=== PATIENT | male | born 1965 | race Caucasian/White ===

== ENCOUNTER 2023-02-01 20:52 | Inpatient (IN) | payer MEDICAID, OTHER ==
[~2023-02-01] VITALS: Ht 175.3 cm; Wt 79.5 kg
[2023-02-01] MEDS ORDERED: CLOPIDOGREL BISULFATE 75 MG TAB PO ONE ×2 (21:15)
[2023-02-01] MEDS ORDERED: HEPARIN SODIUM (PORCINE) 5000 UNITS/ML 1ML VIAL IV ONE ×2 (21:15)
[2023-02-01] MEDS ORDERED: ASPirin 325 MG TAB PO ONE ×2 (21:15)
[2023-02-01 21:24] LABS: Basophils # (auto) 0.1 10 ^3/uL (0-0.2); Basophils % (auto) 0.8 % (0.0-2.0); Eosinophils # (auto) 0.2 10 ^3/uL (0-0.8); Eosinophils % (auto) 1.6 % (0.0-7.0); Hematocrit 46.1 % (41.0-53.0); Lymphocytes % (auto) 22.9 % (10.0-50.0); Mean Corpuscular Hemoglobin 30.6 pg (28.0-32.0); Mean Corpuscular Hgb Conc. 34.7 g/dL (32.0-36.0); Mean Corpuscular Volume 88.2 fL (80.0-100.0); Monocytes # (auto) 0.9 10 ^3/uL (0-1.3); Monocytes % (auto) 6.9 % (0.0-12.0); Neutrophils % (auto) 67.8 % (37.0-80.0); Nucleated Red Blood Cells % 0.1 %; Red Blood Cells 5.22 10^6/uL (4.5-5.90); Red Cell Distribution Width 12.9 % (11.8-14.3); White Blood Cell 13.2 10^3/uL (4.4-10.8)
[2023-02-01] MEDS ORDERED: LIDOCAINE 2%HCL (LOCAL ANESTH.) INJ 20ML MDV ONE (21:31)
[2023-02-01] MEDS ORDERED: IODIXANOL 320MG/ML 100ML BTL IV ONE ×2 (21:31→22:37)
[2023-02-01 21:34] LABS: Albumin 3.7 g/dL (3.4-5.0); Calcium 8.8 mg/dL (8.5-10.1); Magnesium 2.2 mg/dL (1.6-2.6); Potassium 3.6 mmol/L (3.5-5.1)
[2023-02-01 21:38] LABS: BUN/Creatinine Ratio 14.8 (10.0-20.0); Bilirubin, Total 0.4 mg/dL (0.2-1.0); Total Protein 7.6 g/dL (6.4-8.2)
[2023-02-01] MEDS ORDERED: KETAMINE HCL 10 ML ONE (21:39)
[2023-02-01] MEDS ORDERED: ROCURONIUM 10MG/ML 10ML VIAL IV ONE (21:41)
[2023-02-01 21:46] LABS: INR 0.92 (0.9-1.15); Partial Thromboplastin Time 24.2 sec (24.6-33.4)
[2023-02-01 21:50] VITALS: BP 79/57
[2023-02-01] MEDS ORDERED: NOREPINEPHRINE 8 MG/250ML KIT 250 ML IV ONE (21:56)
[2023-02-01] MEDS ORDERED: fentaNYL Drip 2500mCg/250mlNS 250 ML IV SCH (22:00)
[2023-02-01] MEDS ORDERED: NOREPINEPHRINE 8 MG/250ML KIT 250 ML IV SCH (22:00)
[2023-02-01] MEDS: PROPOFOL 100 ML IV SCH (22:00)
[2023-02-01] MEDS ORDERED: SODIUM CHL 0.9% 50 ML ONE (22:18)
[2023-02-01] MEDS ORDERED: ANGIOMAX 250 MG VIAL IV ONE (22:18)
[2023-02-01] MEDS ORDERED: MIDAZOLAM HCL 2MG/2ML 2ml VIAL (1mg/ml) ONE (22:19)
[2023-02-01] MEDS ORDERED: fentaNYL CITRATE 100 MCG/2 ML VL ONE (22:19)
[2023-02-01] MEDS: LIDOCAINE 4MG/ML IV SOLN 500 ML IV SCH (22:28)
[2023-02-01 23:30] VITALS: BP 154/83
[2023-02-01] MEDS ORDERED: NITROGLYCERIN 0.4 MG SL TAB SL PRN ×2 (23:30→23:45)
[2023-02-01] MEDS ORDERED: ACCU-CHEK COMFORT CURVE STRIP VI SCH ×2 (23:30→23:45)
[2023-02-01] MEDS ORDERED: MORPHINE SULFATE INJ 2 MG/ml SYRG IV PRN (23:30)
[2023-02-01 23:35] VITALS: BP 154/83
[2023-02-01 23:45] VITALS: BP 138/86
[2023-02-02] VITALS (99 sets, daily range): BP systolic 46–164; BP diastolic 20–112
[2023-02-02] MEDS ORDERED: InsuLIN REG 1unit/0.01ml Soln (100units/ml) SC SCH
[2023-02-02] MEDS ORDERED: ACCU-CHEK COMFORT CURVE STRIP VI SCH
[2023-02-02 00:49] LABS: Urine Bacteria FEW /hpf (None Seen); Urine Blood 2+ /uL (Negative); Urine Mucus FEW (None Seen); Urine Sperm PRESENT /hpf (None Seen); Urine WBC 4 /hpf (0 - 3)
[2023-02-02 00:55] LABS: Urine Specific Gravity > 1.050 (1.001-1.035)
[2023-02-02 01:07] LABS: Alcohol, Urine < 3.0 mg/dL (0-10); Barbiturate Scree,Urine NEGATIVE (NEGATIVE); Benzodiazephine Screen, Urine NEGATIVE (NEGATIVE); Cannabinoid Screen, Urine NEGATIVE (NEGATIVE)
[2023-02-02 01:15] LABS: Amphetamine Screen, Urine POSITIVE (NEGATIVE); Cocaine Screen, Urine NEGATIVE (NEGATIVE); Opiate Scree,Urine NEGATIVE (NEGATIVE); Phencyclidine Screen, Urine NEGATIVE (NEGATIVE)
[2023-02-02] MEDS: MIDAZOLAM DRIP 50 mg/50mL 50 ML IV SCH ×3 (01:20→18:31)
[2023-02-02 01:47] LABS: Anion Gap 14 (5-15); BUN/Creatinine Ratio 14.3 (10.0-20.0); Blood Urea Nitrogen 21 mg/dL (7-18); Calcium 8.7 mg/dL (8.5-10.1); Carbon Dioxide 19 mmol/L (21-32); Chloride 96 mmol/L (98-107); GFR African American 64 mL/min; GFR Non-African American 53 mL/min; Magnesium 2.6 mg/dL (1.6-2.6); Potassium 4.5 mmol/L (3.5-5.1); Sodium 129 mmol/L (136-145)
[2023-02-02 01:58] LABS: Glucose 824 mg/dL (74-106)
[2023-02-02] MEDS ORDERED: DEXTROSE (50%) 50ML SYRG IV PRN ×3 (02:00→02:30)
[2023-02-02] MEDS ORDERED: InsuLIN R (HUMAN) 100 UNITS in SODIUM CHL 0.9% 99 ML IV SCH ×2 (02:00→05:00)
[2023-02-02] MEDS: NOREPINEPHRINE 8 MG/250ML KIT 250 ML IV SCH ×3 (02:30→23:15)
[2023-02-02] MEDS ORDERED: CEFTRIAXONE SODIUM 2 GM in D5W 5% 100 ML IV ONE (02:30)
[2023-02-02] MEDS ORDERED: SODIUM BICARBONATE 8.4 % INJ 50ML VIAL IV ONE (02:30)
[2023-02-02] MEDS: EPINEPHrine HCL 250 ML IV SCH (02:30)
[2023-02-02] MEDS: ACCU-CHEK COMFORT CURVE STRIP VI SCH ×14 (02:39→22:36)
[2023-02-02] MEDS: VASOPRESSIN 20 UNITS in SODIUM CHL 0.9% 99 ML IV SCH ×2 (03:00→12:25)
[2023-02-02] MEDS: PHENYLEPHRINE IV 250 ML IV SCH ×3 (03:00→19:10)
[2023-02-02 04:28] LABS: Hematocrit 49.7 % (41.0-53.0); Hemoglobin 15.8 g/dL (13.5-17.5); Mean Corpuscular Hgb Conc. 31.8 g/dL (32.0-36.0); Mean Corpuscular Volume 97.7 fL (80.0-100.0); Red Blood Cells 5.09 10^6/uL (4.5-5.90); Red Cell Distribution Width 13.4 % (11.8-14.3); White Blood Cell 27.4 10^3/uL (4.4-10.8)
[2023-02-02 04:40] LABS: Basophils % (manual) 0 (0.0-2.0); Blast Cells 0; Eosinophils % (manual) 0 (0-7); Promyelocytes % 0; Reactive Lymphocytes 0
[2023-02-02] MEDS: ACETAMINOPHEN 650 mg PER 20.3 mL UD GT PRN (06:56)
[2023-02-02] MEDS: InsuLIN R (HUMAN) 100 UNITS in SODIUM CHL 0.9% 99 ML IV SCH (06:58)
[2023-02-02 07:23] LABS: Band Neutrophils % (manual) 6; Lymphocytes % (manual) 9 (10.0-50.0); Metamyelocytes % 3; Monocytes % (manual) 4 (0-12); Myelocytes % 1
[2023-02-02] MEDS: PIPERACILLIN-TAZOB 3.375GM 100 ML IV SCH ×3 (08:22→21:56)
[2023-02-02 08:27] LABS: BUN/Creatinine Ratio 16.7 (10.0-20.0); Calcium 7.3 mg/dL (8.5-10.1); Magnesium 2.3 mg/dL (1.6-2.6); Potassium 3.9 mmol/L (3.5-5.1)
[2023-02-02] MEDS: LIDOCAINE 4MG/ML IV SOLN 500 ML IV SCH (08:34)
[2023-02-02] MEDS ORDERED: CLOPIDOGREL BISULFATE 75 MG TAB PO ONE ×2 (10:00)
[2023-02-02] MEDS ORDERED: METOPROLOL TARTRATE 25 MG TAB PO ONE ×2 (10:00)
[2023-02-02] MEDS ORDERED: ATORVASTATIN 20 MG TAB PO ONE ×2 (10:00)
[2023-02-02] MEDS ORDERED: ASPirin 81 mg TAB PO ONE ×2 (10:00)
[2023-02-02] MEDS ORDERED: AMIODARONE 450mg/250ml AE 250 ML IV SCH (12:00)
[2023-02-02 12:20] LABS: BUN/Creatinine Ratio 19.3 (10.0-20.0); Calcium 9.1 mg/dL (8.5-10.1); Magnesium 2.4 mg/dL (1.6-2.6); Phosphorus 3.9 mg/dL (2.5-4.90); Potassium 4.1 mmol/L (3.5-5.1)
[2023-02-02] MEDS: fentaNYL Drip 2500mCg/250mlNS 250 ML IV SCH (12:25)
[2023-02-02 14:19] LABS: INR 1.08 (0.9-1.15); Partial Thromboplastin Time 24.4 sec (24.6-33.4)
[2023-02-02] MEDS ORDERED: LIDOCAINE 1% (LOCAL ANESTH.) PF 5ml SDV ID ONE (16:00)
[2023-02-02 16:33] LABS: BUN/Creatinine Ratio 24.1 (10.0-20.0); Calcium 7.8 mg/dL (8.5-10.1); Magnesium 2.3 mg/dL (1.6-2.6); Phosphorus 2.8 mg/dL (2.5-4.90); Potassium 3.3 mmol/L (3.5-5.1)
[2023-02-02] MEDS: AMIODARONE 450mg/250ml AE 250 ML IV SCH ×2 (18:15→20:04)
[2023-02-02 20:36] LABS: Magnesium 2.1 mg/dL (1.6-2.6)
[2023-02-02 20:44] LABS: BUN/Creatinine Ratio 22.2 (10.0-20.0); Phosphorus 2.8 mg/dL (2.5-4.90)
[2023-02-02 20:53] LABS: Potassium 2.9 mmol/L (3.5-5.1)
[2023-02-02] MEDS: SODIUM CHLOR 0.9% PF (SALINE LOCK) 10ML VIAL/SYR IV SCH (21:57)
[2023-02-02] MEDS: PROPOFOL 100 ML IV SCH (22:00)
[2023-02-02] MEDS: ATORVASTATIN 20 MG TAB PO SCH (22:03)
[2023-02-02] MEDS: POTASSIUM CHL 20MEQ/100ML 100 ML IV SCH (22:36)
[2023-02-03] VITALS (106 sets, daily range): BP systolic 82–122; BP diastolic 50–74
[2023-02-03] MEDS: VASOPRESSIN 20 UNITS in SODIUM CHL 0.9% 99 ML IV SCH ×3 (00:44→22:58)
[2023-02-03] MEDS: MIDAZOLAM DRIP 50 mg/50mL 50 ML IV SCH ×3 (00:56→20:38)
[2023-02-03] MEDS: POTASSIUM CHL 20MEQ/100ML 100 ML IV SCH ×3 (00:57→15:59)
[2023-02-03] MEDS: ACCU-CHEK COMFORT CURVE STRIP VI SCH ×11 (01:19→17:30)
[2023-02-03] MEDS: EPINEPHrine HCL 250 ML IV SCH (02:30)
[2023-02-03] MEDS: PHENYLEPHRINE IV 250 ML IV SCH ×3 (03:30→20:10)
[2023-02-03 04:17] LABS: Basophils # (auto) 0 10 ^3/uL (0-0.2); Basophils % (auto) 0.2 % (0.0-2.0); Eosinophils # (auto) 0.1 10 ^3/uL (0-0.8); Eosinophils % (auto) 0.4 % (0.0-7.0); Hematocrit 40.6 % (41.0-53.0); Hemoglobin 14.2 g/dL (13.5-17.5); Lymphocytes # (auto) 2.9 10 ^3/uL (0.4-5.4); Lymphocytes % (auto) 18.1 % (10.0-50.0); Mean Corpuscular Hemoglobin 30.9 pg (28.0-32.0); Mean Corpuscular Hgb Conc. 34.8 g/dL (32.0-36.0); Mean Corpuscular Volume 88.7 fL (80.0-100.0); Monocytes # (auto) 1.7 10 ^3/uL (0-1.3); Monocytes % (auto) 10.5 % (0.0-12.0); Neutrophils # (auto) 11.5 10 ^3/uL (1.6-8.6); Neutrophils % (auto) 70.8 % (37.0-80.0); Red Blood Cells 4.58 10^6/uL (4.5-5.90); Red Cell Distribution Width 13.4 % (11.8-14.3); White Blood Cell 16.2 10^3/uL (4.4-10.8)
[2023-02-03 04:44] LABS: Calcium 7.5 mg/dL (8.5-10.1); Magnesium 1.7 mg/dL (1.6-2.6); Potassium 3.2 mmol/L (3.5-5.1)
[2023-02-03 04:46] LABS: BUN/Creatinine Ratio 24.7 (10.0-20.0); Phosphorus 2.3 mg/dL (2.5-4.90)
[2023-02-03] MEDS: PIPERACILLIN-TAZOB 3.375GM 100 ML IV SCH ×3 (05:59→22:11)
[2023-02-03] MEDS: NOREPINEPHRINE 8 MG/250ML KIT 250 ML IV SCH ×3 (06:03→22:52)
[2023-02-03] MEDS: InsuLIN R (HUMAN) 100 UNITS in SODIUM CHL 0.9% 99 ML IV SCH (06:45)
[2023-02-03 09:00] LABS: Albumin 2.7 g/dL (3.4-5.0); Calcium 7.7 mg/dL (8.5-10.1); Magnesium 2.1 mg/dL (1.6-2.6); Potassium 3.3 mmol/L (3.5-5.1)
[2023-02-03 09:03] LABS: BUN/Creatinine Ratio 26.3 (10.0-20.0); Bilirubin, Total 0.8 mg/dL (0.2-1.0); Phosphorus 1.9 mg/dL (2.5-4.90); Total Protein 5.9 g/dL (6.4-8.2)
[2023-02-03] MEDS: SODIUM CHLOR 0.9% PF (SALINE LOCK) 10ML VIAL/SYR IV SCH ×2 (09:07→22:11)
[2023-02-03] MEDS: ASPirin 81 mg TAB PO SCH (09:09)
[2023-02-03] MEDS: CLOPIDOGREL BISULFATE 75 MG TAB PO SCH (09:09)
[2023-02-03] MEDS ORDERED: InsuLIN R (HUMAN) 100 UNITS in SODIUM CHL 0.9% 99 ML IV SCH ×2 (09:15→10:30)
[2023-02-03] MEDS ORDERED: DEXTROSE (50%) 50ML SYRG IV PRN (11:30)
[2023-02-03] MEDS ORDERED: FUROSEMIDE 20 MG/2 ML VIAL IV ONE (11:45)
[2023-02-03] MEDS: InsuLIN REG 1unit/0.01ml Soln (100units/ml) SC SCH ×2 (12:04→17:31)
[2023-02-03] MEDS: fentaNYL Drip 2500mCg/250mlNS 250 ML IV SCH (12:30)
[2023-02-03] MEDS: PROPOFOL 100 ML IV SCH (21:45)
[2023-02-03] MEDS: ATORVASTATIN 20 MG TAB PO SCH (22:10)
[2023-02-04] VITALS (105 sets, daily range): BP systolic 76–130; BP diastolic 37–80
[2023-02-04] MEDS: ACCU-CHEK COMFORT CURVE STRIP VI SCH ×4 (00:34→18:05)
[2023-02-04] MEDS: AMIODARONE 450mg/250ml AE 250 ML IV SCH ×2 (00:48→15:00)
[2023-02-04] MEDS: InsuLIN REG 1unit/0.01ml Soln (100units/ml) SC SCH ×4 (00:59→18:10)
[2023-02-04] MEDS: EPINEPHrine HCL 250 ML IV SCH (02:30)
[2023-02-04] MEDS: MIDAZOLAM DRIP 50 mg/50mL 50 ML IV SCH ×2 (03:41→22:04)
[2023-02-04] MEDS: ACETAMINOPHEN 650 mg PER 20.3 mL UD GT PRN (03:44)
[2023-02-04 04:07] LABS: Basophils # (auto) 0 10 ^3/uL (0-0.2); Basophils % (auto) 0.4 % (0.0-2.0); Eosinophils # (auto) 0.1 10 ^3/uL (0-0.8); Eosinophils % (auto) 0.7 % (0.0-7.0); Hematocrit 36.1 % (41.0-53.0); Hemoglobin 12.4 g/dL (13.5-17.5); Lymphocytes # (auto) 1.6 10 ^3/uL (0.4-5.4); Lymphocytes % (auto) 14.1 % (10.0-50.0); Mean Corpuscular Hemoglobin 30.5 pg (28.0-32.0); Mean Corpuscular Hgb Conc. 34.3 g/dL (32.0-36.0); Mean Corpuscular Volume 88.8 fL (80.0-100.0); Monocytes # (auto) 1.4 10 ^3/uL (0-1.3); Monocytes % (auto) 11.9 % (0.0-12.0); Neutrophils # (auto) 8.3 10 ^3/uL (1.6-8.6); Neutrophils % (auto) 72.9 % (37.0-80.0); Red Blood Cells 4.06 10^6/uL (4.5-5.90); Red Cell Distribution Width 13.3 % (11.8-14.3); White Blood Cell 11.4 10^3/uL (4.4-10.8)
[2023-02-04 04:22] LABS: BUN/Creatinine Ratio 25.6 (10.0-20.0); Calcium 7.3 mg/dL (8.5-10.1); Magnesium 1.9 mg/dL (1.6-2.6); Potassium 3.6 mmol/L (3.5-5.1)
[2023-02-04] MEDS: PHENYLEPHRINE IV 250 ML IV SCH ×3 (04:30→21:10)
[2023-02-04] MEDS: PIPERACILLIN-TAZOB 3.375GM 100 ML IV SCH ×3 (06:00→21:54)
[2023-02-04] MEDS: ASPirin 81 mg TAB PO SCH (08:55)
[2023-02-04] MEDS: CLOPIDOGREL BISULFATE 75 MG TAB PO SCH (08:55)
[2023-02-04] MEDS: VASOPRESSIN 20 UNITS in SODIUM CHL 0.9% 99 ML IV SCH ×2 (08:55→21:12)
[2023-02-04] MEDS: SODIUM CHLOR 0.9% PF (SALINE LOCK) 10ML VIAL/SYR IV SCH ×2 (08:55→22:06)
[2023-02-04] MEDS: MAGNESIUM SULFATE 1GM/100ML 100 ML IV SCH ×2 (09:42→11:11)
[2023-02-04] MEDS: INSULIN LANTUS (GLARGINE) 1 /0.01ml (100units/ml) SC SCH (09:46)
[2023-02-04] MEDS: fentaNYL Drip 2500mCg/250mlNS 250 ML IV SCH ×2 (12:30→23:26)
[2023-02-04] MEDS ORDERED: PROPOFOL 100 ML IV ONE (21:01)
[2023-02-04] MEDS: PROPOFOL 100 ML IV SCH (21:18)
[2023-02-04] MEDS: ATORVASTATIN 20 MG TAB PO SCH (21:55)
[2023-02-05] VITALS (96 sets, daily range): BP systolic 85–137; BP diastolic 46–83
[2023-02-05] MEDS ORDERED: PROPOFOL 100 ML IV ONE ×2 (00:06→08:48)
[2023-02-05] MEDS: ACCU-CHEK COMFORT CURVE STRIP VI SCH ×4 (00:42→18:10)
[2023-02-05] MEDS: InsuLIN REG 1unit/0.01ml Soln (100units/ml) SC SCH ×4 (00:44→18:18)
[2023-02-05] MEDS: PROPOFOL 100 ML IV SCH ×4 (01:36→21:15)
[2023-02-05] MEDS: EPINEPHrine HCL 250 ML IV SCH (02:30)
[2023-02-05] MEDS: NOREPINEPHRINE 8 MG/250ML KIT 250 ML IV SCH ×2 (02:30→13:02)
[2023-02-05 04:29] LABS: Potassium 3.9 mmol/L (3.5-5.1)
[2023-02-05 04:33] LABS: Albumin 1.9 g/dL (3.4-5.0); BUN/Creatinine Ratio 21.7 (10.0-20.0); Calcium 7.8 mg/dL (8.5-10.1)
[2023-02-05 04:41] LABS: Bilirubin, Total 0.7 mg/dL (0.2-1.0); Total Protein 5.7 g/dL (6.4-8.2)
[2023-02-05] MEDS: PHENYLEPHRINE IV 250 ML IV SCH ×3 (05:30→22:10)
[2023-02-05] MEDS: AMIODARONE 450mg/250ml AE 250 ML IV SCH ×2 (06:00→21:00)
[2023-02-05 06:01] LABS: Hemoglobin 12.8 g/dL (13.5-17.5); Mean Corpuscular Hemoglobin 32.6 pg (28.0-32.0); Red Blood Cells 3.92 10^6/uL (4.5-5.90); Red Cell Distribution Width 13.6 % (11.8-14.3)
[2023-02-05 06:02] LABS: Hematocrit 34.2 % (41.0-53.0); Mean Corpuscular Volume 87.3 fL (80.0-100.0); White Blood Cell 10.8 10^3/uL (4.4-10.8)
[2023-02-05 06:04] LABS: Mean Corpuscular Hgb Conc. 37.3 g/dL (32.0-36.0)
[2023-02-05 06:05] LABS: Basophils % (manual) 0 (0.0-2.0); Blast Cells 0; Eosinophils % (manual) 0 (0-7); Myelocytes % 0; Promyelocytes % 0; Reactive Lymphocytes 0
[2023-02-05] MEDS: PIPERACILLIN-TAZOB 3.375GM 100 ML IV SCH ×3 (06:23→21:14)
[2023-02-05] MEDS: VASOPRESSIN 20 UNITS in SODIUM CHL 0.9% 99 ML IV SCH ×2 (08:19→19:26)
[2023-02-05 08:23] LABS: Band Neutrophils % (manual) 7; Lymphocytes % (manual) 13 (10.0-50.0); Metamyelocytes % 8; Monocytes % (manual) 10 (0-12)
[2023-02-05] MEDS: SODIUM CHLOR 0.9% PF (SALINE LOCK) 10ML VIAL/SYR IV SCH ×2 (10:11→21:14)
[2023-02-05] MEDS: CLOPIDOGREL BISULFATE 75 MG TAB PO SCH (10:13)
[2023-02-05] MEDS: ASPirin 81 mg TAB PO SCH (10:13)
[2023-02-05] MEDS: INSULIN LANTUS (GLARGINE) 1 /0.01ml (100units/ml) SC SCH (10:13)
[2023-02-05] MEDS: ATORVASTATIN 20 MG TAB PO SCH (21:14)
[2023-02-05] MEDS: fentaNYL Drip 2500mCg/250mlNS 250 ML IV SCH (21:15)
[2023-02-06] VITALS (86 sets, daily range): BP systolic 33–151; BP diastolic 12–80
[2023-02-06] MEDS: MIDAZOLAM DRIP 50 mg/50mL 50 ML IV SCH (00:15)
[2023-02-06] MEDS: ACCU-CHEK COMFORT CURVE STRIP VI SCH ×5 (00:45→23:35)
[2023-02-06] MEDS: InsuLIN REG 1unit/0.01ml Soln (100units/ml) SC SCH ×5 (00:45→23:39)
[2023-02-06] MEDS: EPINEPHrine HCL 250 ML IV SCH (02:30)
[2023-02-06] MEDS: PROPOFOL 100 ML IV SCH (02:38)
[2023-02-06 04:03] LABS: Basophils # (auto) 0 10 ^3/uL (0-0.2); Basophils % (auto) 0.3 % (0.0-2.0); Eosinophils # (auto) 0.3 10 ^3/uL (0-0.8); Eosinophils % (auto) 2.7 % (0.0-7.0); Hematocrit 33.7 % (41.0-53.0); Hemoglobin 11.7 g/dL (13.5-17.5); Lymphocytes # (auto) 1.8 10 ^3/uL (0.4-5.4); Lymphocytes % (auto) 18.2 % (10.0-50.0); Mean Corpuscular Hemoglobin 30.9 pg (28.0-32.0); Mean Corpuscular Hgb Conc. 34.7 g/dL (32.0-36.0); Mean Corpuscular Volume 89.1 fL (80.0-100.0); Monocytes # (auto) 1.3 10 ^3/uL (0-1.3); Monocytes % (auto) 13.4 % (0.0-12.0); Neutrophils # (auto) 6.5 10 ^3/uL (1.6-8.6); Neutrophils % (auto) 65.4 % (37.0-80.0); Red Blood Cells 3.78 10^6/uL (4.5-5.90); Red Cell Distribution Width 13.2 % (11.8-14.3)
[2023-02-06 04:18] LABS: BUN/Creatinine Ratio 30.2 (10.0-20.0); Potassium 3.2 mmol/L (3.5-5.1)
[2023-02-06] MEDS: PIPERACILLIN-TAZOB 3.375GM 100 ML IV SCH ×3 (05:36→22:19)
[2023-02-06] MEDS: PHENYLEPHRINE IV 250 ML IV SCH ×3 (06:30→23:10)
[2023-02-06] MEDS: VASOPRESSIN 20 UNITS in SODIUM CHL 0.9% 99 ML IV SCH ×2 (06:33→16:42)
[2023-02-06] MEDS: SODIUM CHLOR 0.9% PF (SALINE LOCK) 10ML VIAL/SYR IV SCH ×2 (09:14→22:19)
[2023-02-06] MEDS: ASPirin 81 mg TAB PO SCH (09:14)
[2023-02-06] MEDS: CLOPIDOGREL BISULFATE 75 MG TAB PO SCH (09:14)
[2023-02-06] MEDS: AMIODARONE 450mg/250ml AE 250 ML IV SCH (12:00)
[2023-02-06] MEDS: INSULIN LANTUS (GLARGINE) 1 /0.01ml (100units/ml) SC SCH (12:05)
[2023-02-06] MEDS: MORPHINE SULFATE INJ 2 MG/ml SYRG IV PRN (13:43)
[2023-02-06] MEDS: POTASSIUM CHL 20MEQ/100ML 100 ML IV SCH ×2 (15:07→16:41)
[2023-02-06] MEDS: ATORVASTATIN 20 MG TAB PO SCH (22:19)
[2023-02-07] VITALS (50 sets, daily range): BP systolic 105–136; BP diastolic 40–82
[2023-02-07] MEDS: MIDAZOLAM DRIP 50 mg/50mL 50 ML IV SCH (00:15)
[2023-02-07] MEDS: EPINEPHrine HCL 250 ML IV SCH (02:30)
[2023-02-07] MEDS: NOREPINEPHRINE 8 MG/250ML KIT 250 ML IV SCH (02:30)
[2023-02-07] MEDS: AMIODARONE 450mg/250ml AE 250 ML IV SCH (03:00)
[2023-02-07] MEDS: VASOPRESSIN 20 UNITS in SODIUM CHL 0.9% 99 ML IV SCH (03:19)
[2023-02-07 04:43] LABS: Calcium 8.3 mg/dL (8.5-10.1)
[2023-02-07 04:51] LABS: Basophils # (auto) 0 10 ^3/uL (0-0.2); Basophils % (auto) 0.3 % (0.0-2.0); Eosinophils # (auto) 0.2 10 ^3/uL (0-0.8); Eosinophils % (auto) 1.9 % (0.0-7.0); Hematocrit 34.9 % (41.0-53.0); Hemoglobin 12.2 g/dL (13.5-17.5); Lymphocytes # (auto) 1.6 10 ^3/uL (0.4-5.4); Lymphocytes % (auto) 14.6 % (10.0-50.0); Mean Corpuscular Hemoglobin 30.7 pg (28.0-32.0); Mean Corpuscular Volume 87.8 fL (80.0-100.0); Monocytes # (auto) 1.7 10 ^3/uL (0-1.3); Monocytes % (auto) 14.9 % (0.0-12.0); Neutrophils # (auto) 7.7 10 ^3/uL (1.6-8.6); Neutrophils % (auto) 68.3 % (37.0-80.0); Red Blood Cells 3.97 10^6/uL (4.5-5.90); Red Cell Distribution Width 13.2 % (11.8-14.3); White Blood Cell 11.2 10^3/uL (4.4-10.8)
[2023-02-07] MEDS: ACCU-CHEK COMFORT CURVE STRIP VI SCH ×4 (06:03→23:46)
[2023-02-07] MEDS: InsuLIN REG 1unit/0.01ml Soln (100units/ml) SC SCH ×3 (06:04→18:57)
[2023-02-07] MEDS: PIPERACILLIN-TAZOB 3.375GM 100 ML IV SCH ×2 (06:08→14:25)
[2023-02-07] MEDS: PHENYLEPHRINE IV 250 ML IV SCH (07:30)
[2023-02-07] MEDS: ASPirin 81 mg TAB PO SCH (11:14)
[2023-02-07] MEDS: CLOPIDOGREL BISULFATE 75 MG TAB PO SCH (11:15)
[2023-02-07] MEDS: SODIUM CHLOR 0.9% PF (SALINE LOCK) 10ML VIAL/SYR IV SCH ×2 (11:15→22:33)
[2023-02-07] MEDS: INSULIN LANTUS (GLARGINE) 1 /0.01ml (100units/ml) SC SCH (11:27)
[2023-02-07] MEDS: POTASSIUM CHL 20MEQ/100ML 100 ML IV SCH ×2 (11:34→16:45)
[2023-02-07] MEDS ORDERED: POTASSIUM CHL 20MEQ/100ML 100 ML IV ONE (12:00)
[2023-02-07] MEDS ORDERED: LIDOCAINE 2% JELLY 11ml (GLYDO) UR ONE (15:15)
[2023-02-07] MEDS ORDERED: levoFLOXacin 750MG 150 ML IV ONE (16:30)
[2023-02-07] MEDS: ATORVASTATIN 20 MG TAB PO SCH (22:32)
[2023-02-08] VITALS (22 sets, daily range): BP systolic 110–148; BP diastolic 47–82
[2023-02-08] MEDS: InsuLIN REG 1unit/0.01ml Soln (100units/ml) SC SCH ×5 (00:03→23:41)
[2023-02-08] MEDS: ACETAMINOPHEN 650 mg PER 20.3 mL UD GT PRN (00:03)
[2023-02-08 05:17] LABS: Hematocrit 38.8 % (41.0-53.0); Hemoglobin 13.5 g/dL (13.5-17.5); Mean Corpuscular Hemoglobin 30.6 pg (28.0-32.0); Mean Corpuscular Hgb Conc. 34.9 g/dL (32.0-36.0); Mean Corpuscular Volume 87.7 fL (80.0-100.0); Red Blood Cells 4.42 10^6/uL (4.5-5.90); Red Cell Distribution Width 12.8 % (11.8-14.3); White Blood Cell 11.9 10^3/uL (4.4-10.8)
[2023-02-08 05:40] LABS: BUN/Creatinine Ratio 15.3 (10.0-20.0); Calcium 8.2 mg/dL (8.5-10.1); Potassium 3.4 mmol/L (3.5-5.1)
[2023-02-08 05:53] LABS: Blast Cells 0; Metamyelocytes % 0; Myelocytes % 0; Promyelocytes % 0; Reactive Lymphocytes 0
[2023-02-08] MEDS: ACCU-CHEK COMFORT CURVE STRIP VI SCH ×4 (06:29→23:37)
[2023-02-08 08:48] LABS: Band Neutrophils % (manual) 1; Basophils % (manual) 1 (0.0-2.0); Eosinophils % (manual) 3 (0-7); Lymphocytes % (manual) 23 (10.0-50.0); Monocytes % (manual) 14 (0-12)
[2023-02-08] MEDS: levoFLOXacin 750MG 150 ML IV SCH (10:05)
[2023-02-08] MEDS: CLOPIDOGREL BISULFATE 75 MG TAB PO SCH (10:05)
[2023-02-08] MEDS: SODIUM CHLOR 0.9% PF (SALINE LOCK) 10ML VIAL/SYR IV SCH ×2 (10:06→20:22)
[2023-02-08] MEDS: ASPirin 81 mg TAB PO SCH (10:06)
[2023-02-08] MEDS: INSULIN LANTUS (GLARGINE) 1 /0.01ml (100units/ml) SC SCH (10:10)
[2023-02-08] MEDS: ATORVASTATIN 20 MG TAB PO SCH (20:22)
[2023-02-08] MEDS: MORPHINE SULFATE INJ 2 MG/ml SYRG IV PRN (20:26)
[2023-02-09] VITALS (9 sets, daily range): BP systolic 116–152; BP diastolic 63–95
[2023-02-09 06:15] LABS: Calcium 8.5 mg/dL (8.5-10.1); Potassium 3.7 mmol/L (3.5-5.1)
[2023-02-09 06:18] LABS: BUN/Creatinine Ratio 13.2 (10.0-20.0)
[2023-02-09 06:19] LABS: Hematocrit 39.7 % (41.0-53.0); Mean Corpuscular Hemoglobin 30.6 pg (28.0-32.0); Mean Corpuscular Hgb Conc. 35.2 g/dL (32.0-36.0); Mean Corpuscular Volume 86.8 fL (80.0-100.0); Red Blood Cells 4.57 10^6/uL (4.5-5.90); Red Cell Distribution Width 13.2 % (11.8-14.3); White Blood Cell 14.2 10^3/uL (4.4-10.8)
[2023-02-09 06:22] LABS: Basophils % (manual) 0 (0.0-2.0); Blast Cells 0; Metamyelocytes % 0; Myelocytes % 0; Promyelocytes % 0; Reactive Lymphocytes 0
[2023-02-09] MEDS: ACCU-CHEK COMFORT CURVE STRIP VI SCH ×3 (06:34→18:00)
[2023-02-09] MEDS: InsuLIN REG 1unit/0.01ml Soln (100units/ml) SC SCH ×3 (06:37→18:00)
[2023-02-09] MEDS: ASPirin 81 mg TAB PO SCH (09:18)
[2023-02-09] MEDS: levoFLOXacin 750MG 150 ML IV SCH (09:18)
[2023-02-09] MEDS: CLOPIDOGREL BISULFATE 75 MG TAB PO SCH (09:18)
[2023-02-09] MEDS: SODIUM CHLOR 0.9% PF (SALINE LOCK) 10ML VIAL/SYR IV SCH ×2 (09:18→22:30)
[2023-02-09] MEDS: INSULIN LANTUS (GLARGINE) 1 /0.01ml (100units/ml) SC SCH (09:19)
[2023-02-09 09:22] LABS: Band Neutrophils % (manual) 2; Eosinophils % (manual) 4 (0-7); Lymphocytes % (manual) 27 (10.0-50.0); Monocytes % (manual) 7 (0-12)
[2023-02-09] MEDS ORDERED: LIDOCAINE 2%HCL (LOCAL ANESTH.) INJ 20ML MDV ONE (18:10)
[2023-02-09] MEDS ORDERED: IODIXANOL 320MG/ML 100ML BTL IV ONE ×2 (18:10→18:38)
[2023-02-09] MEDS ORDERED: VERAPAMIL 2.5MG/ML INJ 2ML VIAL IV ONE (18:11)
[2023-02-09] MEDS ORDERED: fentaNYL CITRATE 100 MCG/2 ML VL ONE (18:11)
[2023-02-09] MEDS ORDERED: MIDAZOLAM HCL 2MG/2ML 2ml VIAL (1mg/ml) ONE (18:12)
[2023-02-09] MEDS ORDERED: HEPARIN SODIUM (PORCINE) 5000 UNITS/ML 1ML VIAL ONE (18:14)
[2023-02-09] MEDS ORDERED: ANGIOMAX 250 MG VIAL IV ONE (18:20)
[2023-02-09] MEDS ORDERED: SODIUM CHL 0.9% 50 ML ONE (18:20)
[2023-02-09] MEDS: ATORVASTATIN 20 MG TAB PO SCH (22:16)
[2023-02-09] MEDS: MORPHINE SULFATE INJ 2 MG/ml SYRG IV PRN (22:31)
[2023-02-10] MEDS: InsuLIN REG 1unit/0.01ml Soln (100units/ml) SC SCH ×3 (00:05→13:33)
[2023-02-10 05:00] VITALS: BP 116/71
[2023-02-10 05:48] LABS: Hemoglobin 14.2 g/dL (13.5-17.5)
[2023-02-10 05:52] LABS: Hematocrit 41.5 % (41.0-53.0); Mean Corpuscular Hemoglobin 29.7 pg (28.0-32.0); Mean Corpuscular Hgb Conc. 34.3 g/dL (32.0-36.0); Mean Corpuscular Volume 86.7 fL (80.0-100.0); Red Blood Cells 4.78 10^6/uL (4.5-5.90); White Blood Cell 13.7 10^3/uL (4.4-10.8)
[2023-02-10 05:57] LABS: Basophils % (manual) 0 (0.0-2.0); Blast Cells 0; Metamyelocytes % 0; Myelocytes % 0; Promyelocytes % 0; Reactive Lymphocytes 0
[2023-02-10 05:58] LABS: BUN/Creatinine Ratio 14.1 (10.0-20.0); Calcium 8.7 mg/dL (8.5-10.1); Potassium 3.8 mmol/L (3.5-5.1)
[2023-02-10] MEDS: ACCU-CHEK COMFORT CURVE STRIP VI SCH ×3 (06:12→12:00)
[2023-02-10 08:00] VITALS: BP 116/71
[2023-02-10 08:24] LABS: Band Neutrophils % (manual) 3; Eosinophils % (manual) 6 (0-7); Lymphocytes % (manual) 25 (10.0-50.0); Monocytes % (manual) 7 (0-12)
[2023-02-10 08:30] VITALS: BP 114/68
[2023-02-10] MEDS: MORPHINE SULFATE INJ 2 MG/ml SYRG IV PRN (09:15)
[2023-02-10] MEDS: levoFLOXacin 750MG 150 ML IV SCH (09:15)
[2023-02-10] MEDS: ASPirin 81 mg TAB PO SCH (09:15)
[2023-02-10] MEDS: CLOPIDOGREL BISULFATE 75 MG TAB PO SCH (09:16)
[2023-02-10] MEDS: SODIUM CHLOR 0.9% PF (SALINE LOCK) 10ML VIAL/SYR IV SCH (09:16)
[2023-02-10] MEDS: INSULIN LANTUS (GLARGINE) 1 /0.01ml (100units/ml) SC SCH (09:19)
[2023-02-10] MEDS ORDERED: CLOP75TA70 PO (10:55)
[2023-02-10] MEDS ORDERED: ATOR20TA50 PO (10:55)
[2023-02-10] MEDS ORDERED: ASPI-325 PO (10:55)
[2023-02-10] MEDS ORDERED: INSLANTI SC (10:58)
[2023-02-10 12:05] VITALS: BP 114/68
== END 2023-02-10 13:40 | disposition home or self-care (01) | DRG 174 ==
LOC: ER 20:55 → ICU WEST 23:16 → ICU CENTRL 02-07 14:46 → DOU IN ICU 02-07 14:51 → TELE-EAST 02-08 22:27
PROVIDERS: ADMIT Specialist; ATTEND Internal Medicine Pulmonary Disease
PROC: 5A12012 Performance of Cardiac Output, Single, Manual (ICD-10-PCS; principal; 2023-02-01)
PROC: 027034Z Dilation of Coronary Artery, One Artery with Drug-eluting Intraluminal Device, Percutaneous Approach (ICD-10-PCS; 2023-02-01)
PROC: 4A023N7 Measurement of Cardiac Sampling and Pressure, Left Heart, Percutaneous Approach (ICD-10-PCS; 2023-02-01)
PROC: B211YZZ Fluoroscopy of Multiple Coronary Arteries using Other Contrast (ICD-10-PCS; 2023-02-01)
PROC: B215YZZ Fluoroscopy of Left Heart using Other Contrast (ICD-10-PCS; 2023-02-01)
PROC: B240ZZ3 Ultrasonography of Single Coronary Artery, Intravascular (ICD-10-PCS; 2023-02-01)
PROC: B41FYZZ Fluoroscopy of Right Lower Extremity Arteries using Other Contrast (ICD-10-PCS; 2023-02-01)
PROC: 02C03ZZ Extirpation of Matter from Coronary Artery, One Artery, Percutaneous Approach (ICD-10-PCS; 2023-02-01)
PROC: 5A1955Z Respiratory Ventilation, Greater than 96 Consecutive Hours (ICD-10-PCS; 2023-02-02)
PROC: 5A12012 Performance of Cardiac Output, Single, Manual (ICD-10-PCS; 2023-02-02)
PROC: 0BH17EZ Insertion of Endotracheal Airway into Trachea, Via Natural or Artificial Opening (ICD-10-PCS; 2023-02-02)
PROC: 02HV33Z Insertion of Infusion Device into Superior Vena Cava, Percutaneous Approach (ICD-10-PCS; 2023-02-02)
PROC: B548ZZA Ultrasonography of Superior Vena Cava, Guidance (ICD-10-PCS; 2023-02-02)
PROC: 027034Z Dilation of Coronary Artery, One Artery with Drug-eluting Intraluminal Device, Percutaneous Approach (ICD-10-PCS; 2023-02-09)
PROC: 4A023N7 Measurement of Cardiac Sampling and Pressure, Left Heart, Percutaneous Approach (ICD-10-PCS; 2023-02-09)
PROC: B211YZZ Fluoroscopy of Multiple Coronary Arteries using Other Contrast (ICD-10-PCS; 2023-02-09)
PROC: 02C03ZZ Extirpation of Matter from Coronary Artery, One Artery, Percutaneous Approach (ICD-10-PCS; 2023-02-09)
DX: I21.19 ST elevation (STEMI) myocardial infarction involving other coronary artery of inferior wall (principal); J96.01 Acute respiratory failure with hypoxia; I46.9 Cardiac arrest, cause unspecified; I49.01 Ventricular fibrillation; I47.20 Ventricular tachycardia, unspecified; E11.65 Type 2 diabetes mellitus with hyperglycemia; F15.90 Other stimulant use, unspecified, uncomplicated; E78.00 Pure hypercholesterolemia, unspecified; I10 Essential (primary) hypertension; F17.210 Nicotine dependence, cigarettes, uncomplicated; I25.10 Atherosclerotic heart disease of native coronary artery without angina pectoris; Z91.148 Patient's other noncompliance with medication regimen for other reason
CPT/HCPCS: 36415; 36569; 36600; 70450; 71045; 75710; 76937; 80048; 80053; 80307; 81001; 82805; 82962; 83036; 83735; 83880; 84100; 84484; 85007; 85025; 85027; 85610; 85730; 87040; 87070; 87077; 87081; 87086; 87186; 87205; 92941; 92950; 92973; 92978; 93005; 93458; 94002; 94003; 94640; 96365; 96375; 99152; 99153; 99291; C1887; G0378; J0696; J1815; J1956; J2250; J2543; J2704; J3480; J7060; Q9967

== ENCOUNTER 2024-12-08 01:21 | Emergency (ER) | payer SELFPAY ==
[~2024-12-08] VITALS: Ht 175.3 cm; Wt 88.6 kg
[~2024-12-08 01:21] MED LIST: ASPI-325 PO; ATOR20TA50 PO; CLOP75TA70 PO; INSLANTI SC
--- NOTE | 2024-12-08 01:39 | ED.PDOC ---
HPI Comments 59-year-old male with PMHX [place], DM, HTN presents with a chief complaint of chest pain x 3 weeks. Patient states that he has had 3 NY's in the past and has 5 x PTCA. Patient mentions that he is non-compliant with his medications and does not take his DM medications or [place] medications. Patient mentions that his pain is localized to his sternal chest, nonradiating, and describes as tightness. Chief Complaint: Chest Pain Time Seen by MD: 01:29 Primary Care Provider: NONE Reviewed Notes: Medications, Allergies Allergies: Coded Allergies: NO KNOWN ALLERGIES (Unverified , 02/01/23) Home Meds Active Scripts Insulin Glargine (Lantus) 100 Unit/Ml Inj, 15 UNITS SC DAILY@1000 for 30 Days, #30 INJ Prov:ROSA IZQUIERDO MD 02/10/23 Clopidogrel Bisulfate (CLOPIDOGREL) 75 Mg Tab, 75 MG PO DAILY for 30 Days, #30 TAB Prov:ROSA IZQUIERDO MD 02/10/23 Atorvastatin Calcium (ATORVASTATIN CALCIUM) 20 Mg Tab, 40 MG PO HS for 30 Days, #30 TAB Prov:ROSA IZQUIERDO MD 02/10/23 Aspirin (Aspirin Low Dose) 81 Mg Tab, 81 MG PO DAILY for 30 Days, #30 TAB Prov:ROSA IZQUIERDO MD 02/10/23 Information Source: Patient Mode of Arrival: Ambulatory Severity: Moderate Timing: Days Duration: Since onset Prehospital treatment: None Location: Substernal Radiation: No Radiation Quality: Tightness Onset: At Rest Cardiac Risk Factors: Diabetes History of: Similar pain in past, [place] Past Medical History PAST MEDICAL HISTORY: DM, HTN, [place] Surgical History: PTCA Family History Family History: Reviewed,noncontributory to illness, Unknown Social History Smoker: Cigarettes, Greater Than 1 Pack/Day Alcohol: Unknown Drugs: Unknown Lives In: Home Constitutional: denies: chills, diaphoresis, fatigue, fever, malaise, sweats, weakness, others EENTM: denies: blurred vision, double vision, ear bleeding, ear discharge, ear drainage, ear pain, ear ringing, eye pain, eye redness, hearing loss, mouth pain, mouth swelling, nasal discharge, nose bleeding, nose congestion, nose pain, photophobia, tearing, throat pain, throat swelling, voice changes, others Respiratory: denies: cough, hemoptysis, orthopnea, SOB at rest, shortness of breath, SOB with excertion, stridor, wheezing, others Cardiovascular: reports: chest pain; denies: dizzy spells, diaphoresis, Dyspnea on exertion, edema, irregular heart beat, left arm pain, lightheadedness, palpitations, PND, syncope, others Gastrointestinal: denies: abdomen distended, abdominal pain, blood streaked bowels, constipated, diarrhea, dysphagia, difficulty swallowing, hematemesis, melena, nausea, poor appetite, poor fluid intake, rectal bleeding, rectal pain, vomiting, others Genitourinary: denies: burning, dysuria, flank pain, frequency, hematuria, incontinence, penile discharge, penile sore, pain, testicle pain, testicle swelling, urgency, others Neurological: denies: dizziness, fainting, headache, left sided numbness, left sided weakness, numbness, paresthesia, pre-existing deficit, right sided numbness, right sided weakness, seizure, speech problems, tingling, tremors, weakness, others Musculoskeletal: denies: back pain, gout, joint pain, joint swelling, muscle pain, muscle stiffness, neck pain, others Integumetry: denies: bruises, change in color, change in hair/nails, dryness, laceration, lesions, lumps, rash, wounds, others Allergic/Immunocompromised: denies: Difficulty Healing, Frequent Infections, Hives, Itching, others Hematologic/Lymphatic: denies: anemia, blood clots, easy bleeding, easy bruising, swollen glands, others Endocrine: denies: excessive hunger, excessive sweating, excessive thirst, excessive urination, flushing, intolerance to cold, intolerance to heat, unexplained weight gain, unexplained weight loss, others Psychiatric: denies: anxiety, bipolar disorder, depression, hopeless, panic disorder, schizophrenia, sleepless, suicidal, others All Other Systems: Reviewed and Negative Physical Exam General Appearance: No Apparent Distress, Normal HEENT: Normal ENT Inspection, Pharynx Normal, TMs Normal Neck: Full Range of Motion, Non-Tender, Normal, Normal Inspection Respiratory: Chest Non-Tender, Lungs Clear, No Accessory Muscle Use, No Respiratory Distress, Normal Breath Sounds Cardiovascular: No Edema, No JVD, No Murmur, No Gallop, Normal Peripheral Pulses, Regular Rate/Rhythm Breast Exam: Deferred Gastrointestinal: No Organomegaly, Non Tender, No Pulsatile Mass, Normal Bowel Sounds, Soft Genitalia: Deferred Pelvic: Deferred Rectal: Deferred Extremities: No calf tenderness, Normal capillary refill, Normal inspection, Normal range of motion, Non-tender, No pedal edema Musculoskeletal : Apperance: Normal Neurologic: Alert, 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 Was a procedure done?: No CP Differential Dx Differential Diagnosis: A-Flutter, Angina, Heart Failure, PSVT, V-Fib, V-Tach, Other X-Ray, Labs, Meds, VS Vital Signs Date Time Temp Pulse Resp B/P (MAP) Pulse Ox O2 Delivery O2 Flow Rate FiO2 12/08/24 02:29 94 18 99 Room Air 12/08/24 02:29 97.7 94 18 103/69 (80) 99 97.7 12/08/24 02:27 95 12/08/24 01:35 97.4 100 20 100/74 (83) 97 97.4 12/08/24 01:28 97 Lab Test 12/08/24 02:30 12/08/24 01:36 Range/Units Troponin I High Sensitivity 31 32 </=54 ng/L White Blood Count 8.4 4.4-10.8 10^3/uL Red Blood Count 4.49 L 4.5-5.90 10^6/uL Hemoglobin 13.1 L 13.5-17.5 g/dL Hematocrit 39.1 L 41.0-53.0 % Mean Corpuscular Volume 87.1 80.0-100.0 fL Mean Corpuscular Hemoglobin 29.1 28.0-32.0 pg Mean Corpuscular Hemoglobin Concent 33.5 32.0-36.0 g/dL Red Cell Distribution Width 15.1 H 11.8-14.3 % Platelet Count 233 140-450 10^3/uL Mean Platelet Volume 8.2 6.9-10.8 fL Neutrophils (%) (Auto) 58.9 37.0-80.0 % Lymphocytes (%) (Auto) 25.0 10.0-50.0 % Monocytes (%) (Auto) 11.7 0.0-12.0 % Eosinophils (%) (Auto) 3.7 0.0-7.0 % Basophils (%) (Auto) 0.7 0.0-2.0 % Neutrophils # (Auto) 4.9 1.6-8.6 10 ^3/uL Lymphocytes # (Auto) 2.1 0.4-5.4 10 ^3/uL Monocytes # (Auto) 1.0 0-1.3 10 ^3/uL Eosinophils # (Auto) 0.3 0-0.8 10 ^3/uL Basophils # (Auto) 0.1 0-0.2 10 ^3/uL Nucleated Red Blood Cells 0.0 % Sodium Level 141 136-145 mmol/L Potassium Level 3.9 3.5-5.1 mmol/L Chloride Level 106 98-107 mmol/L Carbon Dioxide Level 26 20-31 mmol/L Anion Gap 9 5-15 Blood Urea Nitrogen 23 9-23 mg/dL Creatinine 1.18 0.700-1.30 mg/dL Glomerular Filtration Rate Calc 72 >90 mL/min BUN/Creatinine Ratio 19.5 10.0-20.0 Serum Glucose 161 H 74-106 mg/dL Calcium Level 9.8 8.7-10.4 mg/dL Total Bilirubin 0.5 0.2-1.0 mg/dL Aspartate Amino Transferase (AST) 20 13-40 U/L Alanine Aminotransferase (ALT) 20 7-40 U/L Alkaline Phosphatase 111 46-116 U/L B-Type Natriuretic Peptide 1275.87 0-100 pg/mL Total Protein 7.2 5.7-8.2 g/dL Albumin 4.6 3.2-4.8 g/dL Current Medications Medications (Trade) Dose Ordered Sig/Dianna Route Start Time Stop Time Status Last Admin Sodium Chloride 1,000 ml @ 1,000 mls/hr Q1H ONCE IVB 12/08/24 01:45 12/08/24 02:44 DC 12/08/24 02:41 Aspirin 162 mg ONCE ONCE PO 12/08/24 01:45 12/08/24 01:46 DC 12/08/24 02:22 Time of 1ST Reevaluation: 02:59 Reevaluation 1ST: Unchanged Patient Education/Counseling: Diagnosis, Treatment, Prognosis Family Education/Counseling: No Family Present Departure 1 Departure Time of Disposition: 03:57 Impression: Primary Impression: Atypical chest pain Disposition: 01 HOME / SELF CARE / HOMELESS Condition: Stable Discharged With: Self Critical Care Note Critical Care Time?: No Stability Stability form required: No Heart Score Heart Score: Heart Score Response (Comments) Value History Slightly Suspicious 0 EKG Normal 0 Age 45-64 1 Risk Factors >3 or Hx ASHD 2 Troponin Normal limit 0 Total 3 I personally scribed for ALBA CHAUDHARY MD ([email or web address]) on 12/08/24 at 01:39. Electronically submitted by Guanaco Giles ([email or web address]). ALBA CHAUDHARY MD Dec 08, 2024 01:39
[2024-12-08 01:53] LABS: Basophils # (auto) 0.1 10 ^3/uL (0-0.2); Basophils % (auto) 0.7 % (0.0-2.0); Eosinophils # (auto) 0.3 10 ^3/uL (0-0.8); Eosinophils % (auto) 3.7 % (0.0-7.0); Hematocrit 39.1 % (41.0-53.0); Hemoglobin 13.1 g/dL (13.5-17.5); Lymphocytes # (auto) 2.1 10 ^3/uL (0.4-5.4); Mean Corpuscular Hemoglobin 29.1 pg (28.0-32.0); Mean Corpuscular Hgb Conc. 33.5 g/dL (32.0-36.0); Mean Corpuscular Volume 87.1 fL (80.0-100.0); Monocytes % (auto) 11.7 % (0.0-12.0); Neutrophils # (auto) 4.9 10 ^3/uL (1.6-8.6); Neutrophils % (auto) 58.9 % (37.0-80.0); Platelet Count (auto) 233 10^3/uL (140-450); Red Blood Cells 4.49 10^6/uL (4.5-5.90); Red Cell Distribution Width 15.1 % (11.8-14.3); White Blood Cell 8.4 10^3/uL (4.4-10.8)
[2024-12-08 02:05] LABS: Alanine Aminotransferase 20 U/L (7-40); Albumin 4.6 g/dL (3.2-4.8); Alkaline Phosphatase 111 U/L (46-116); Anion Gap 9 (5-15); Aspartate Aminotransferase 20 U/L (13-40); BUN/Creatinine Ratio 19.5 (10.0-20.0); Calcium 9.8 mg/dL (8.7-10.4); Carbon Dioxide 26 mmol/L (20-31); Chloride 106 mmol/L (98-107); Potassium 3.9 mmol/L (3.5-5.1); Sodium 141 mmol/L (136-145); Total Protein 7.2 g/dL (5.7-8.2)
[2024-12-08 02:06] LABS: Bilirubin, Total 0.5 mg/dL (0.2-1.0)
[2024-12-08 02:08] LABS: Blood Urea Nitrogen 23 mg/dL (9-23); Glucose 161 mg/dL (74-106)
--- NOTE | 2024-12-08 02:14 | DVH ---
CHEST RADIOGRAPH Indication: chest pain Technique: Single frontal view of the chest was obtained COMPARISON: XY CHEST XRAY 1 VIEW on DOS: 02/06/23, XY CHEST PORTABLE on DOS: 02/02/23, XY CHEST PORTABLE on DOS: 02/02/23, XY CHEST PORTABLE on DOS: 02/01/23, XY CHEST PORTABLE on DOS: 02/01/23 FINDINGS: Lines and Tubes: None Lungs: Clear Pleura: No effusion. No pneumothorax. Cardiomediastinal contours: Unremarkable Bones: Unremarkable IMPRESSION: 1. No acute disease.
[2024-12-08] MEDS: ASPirin 81 mg TAB PO ONE (02:22)
[2024-12-08] MEDS: SODIUM CHLORIDE 0.9% 1,000 ML IVB ONE (02:41)
[2024-12-08 03:57] VITALS: BP 105/75; PULSE 94; RESP 21; TEMP 98; O2SAT 97
--- NOTE | 2024-12-08 06:09 | ECG ---
[facility] Test Date: 2024-12-08 Test Time: 02:27:48 Pat Name: SHANE SAHU Department: TRIAGE Room: Gender: M Senior Policy Advisor: ARIELLE : 1965 Requested By: ALBA CHAUDHARY Order Number: [id number] Reading MD: Clif Ruvalcaba Measurements Intervals [place] Rate: 95 P: 31 SC: 182 QRS: 255 QRSD: 103 T: 66 QT: 374 QTc: 470 Interpretive Statements Sinus rhythm Left anterior fascicular block RSR' in V1 or V2, probably normal variant Borderline ST elevation, anterior leads Electronically Signed On 12-08-2024 15:12:53 PDT by Clif Ruvalcaba Please click the below link to view image of tracing.
--- NOTE | 2024-12-09 07:23 | ECG ---
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
== END 2024-12-08 04:11 | disposition home or self-care (01) ==
LOC: ER 01:21
DX: R07.89 Other chest pain (principal); E11.9 Type 2 diabetes mellitus without complications; I10 Essential (primary) hypertension; I25.2 Old myocardial infarction; F17.210 Nicotine dependence, cigarettes, uncomplicated; Z98.890 Other specified postprocedural states; Z79.82 Long term (current) use of aspirin; Z79.02 Long term (current) use of antithrombotics/antiplatelets; Z79.4 Long term (current) use of insulin
CPT/HCPCS: 36415; 71045; 80053; 83880; 84484; 85025; 93005; 96360; 99285; J7030